=== PATIENT | male | born 1990 | race American Indian/Alaskan Native ===

== ENCOUNTER 2023-01-16 18:10 | Emergency (ER) | payer SELFPAY ==
[2023-01-16] MEDS ORDERED: Tetracaine HCl/PF 0.5% 4 ML Bottle ONE (19:03)
[2023-01-16] MEDS ORDERED: Fluorescein 1 MG Ophth Strip ONE (19:04)
[2023-01-16] MEDS ORDERED: Erythromycin Base 0.5% Ophth Oint 3.5 GM Tube ONE (19:04)
== END 2023-01-16 19:51 ==
LOC: DL.ED 18:10
DX: S05.51XA Penetrating wound with foreign body of right eyeball, initial encounter (principal); F17.210 Nicotine dependence, cigarettes, uncomplicated; Z88.0 Allergy status to penicillin; W22.8XXA Striking against or struck by other objects, initial encounter
CPT/HCPCS: 99284; 99285; A9270-GY; J3490

== ENCOUNTER 2023-02-23 10:13 | Emergency (ER) | payer MEDICAID, OTHER ==
[2023-02-23] MEDS ORDERED: Gentamicin 0.3% Ophth Soln 5 ML Bottle EYERT ONE ×2 (10:14→10:42)
[2023-02-23] MEDS ORDERED: Tetracaine HCl/PF 0.5% 4 ML Bottle EYERT ONE (10:27)
[2023-02-23] MEDS ORDERED: Clindamycin HCl 150 MG Cap PO ONE (10:28)
[2023-02-23] MEDS ORDERED: Gentamicin 0.3% Ophth Soln 5 ML Bottle ONE (10:39)
[2023-02-23] MEDS ORDERED: Ciprofloxacin 500 MG Tab ONE (10:44)
== END 2023-02-23 11:11 | disposition home or self-care (01) ==
LOC: DL.ED 10:13
DX: H59.89 Other postprocedural complications and disorders of eye and adnexa, not elsewhere classified (principal); H44.001 Unspecified purulent endophthalmitis, right eye; Z91.199 Patient's noncompliance with other medical treatment and regimen due to unspecified reason; Z88.0 Allergy status to penicillin
CPT/HCPCS: 87070; 99282; 99283; A9270-GY; J3490